=== PATIENT | female | born 1955 | race African-American/Black ===

== ENCOUNTER → 2016-12-13 | Outpatient (CLI) | payer MEDICARE, MEDICAID ==
[~2016-12-13] MED LIST: AMBIEN 10MG10 MG PO; AMOXICILLIN 50500 MG PO; APRESOLINE50 MG PO; ASPI325T6 PO; ASPIRIN E.C. 8181 MG PO; BP MEDICATION; COREG 25MG25 MG/TAB PO; COZAAR 50MG50 MG/TAB PO; DAILY MULTIPLE1 TAB PO; DESYREL 100MG100 MG PO; DESYREL DIVIDO150 M1 PO; DIOVAN 80MG80 MG PO; DOXYCYCLINE 10100 MG PO; DYAZIDE 25 MG-31 CAP PO; IMDUR 30MG30 MG/TAB PO; IMDUR 60MG60 MG/TAB PO; ISORDIL TITRADO30 MG PO; ISOSORBIDE MON120 MG PO; KLOR-CON M1010 MEQ; KLOR-CON M2020 MEQ PO; LANTUS100 U/ML SQ; LIPITOR 80MG80 MG PO; LOPRESSOR 225 MG/TAB PO; LOPRESSOR 550 MG/TAB PO; LOPRESSOR100 MG PO; LUNESTA3 MG PO; NIASPAN 500MG500 MG PO; NITROSTAT0.3 MG SL; NITROSTAT0.4 MG/TAB SL; NORCO 325 MG-51 TAB PO; NORCOELIX PO; NOVOLOG 100U100 U/M1 SQ; PEPCID 20MG TAB20 MG PO; PERCOCET 325 MG1 TA2 PO; PLAVIX 75MG TAB75 MG PO; POTASSIUM75 MG PO; PULMICORT180 MCG/Ac IH; RANEXA 500MG T500 MG PO; RESTORIL 1515 MG/CAP PO; RESTORIL30 MG; RESTORIL30 MG PO; VENTOLIN0.09 MG IH; ZESTRIL 20MG TA20 MG PO; ZOLOFT 50MG50 MG PO
== END ==
LOC: SUN.DIA 11:50
DX: E11.65 Type 2 diabetes mellitus with hyperglycemia (principal); Z79.4 Long term (current) use of insulin; E66.9 Obesity, unspecified; Z68.41 Body mass index [BMI] 40.0-44.9, adult; Z71.3 Dietary counseling and surveillance; E78.5 Hyperlipidemia, unspecified; I10 Essential (primary) hypertension; G47.33 Obstructive sleep apnea (adult) (pediatric); I73.9 Peripheral vascular disease, unspecified
CPT/HCPCS: G0108

== ENCOUNTER 2017-02-26 00:30 | Inpatient (IN) | payer MEDICARE, MEDICAID ==
[~2017-02-26] VITALS: Ht 152.4 cm; Wt 92.0 kg
[~2017-02-26 00:30] MED LIST changes: -APRESOLINE50 MG PO; -COREG 25MG25 MG/TAB PO; -NITROSTAT0.3 MG SL
[2017-02-26] MEDS ORDERED: NITROSTAT0.3 MG SL (00:44)
[2017-02-26 01:16] LABS: BASO % 0.2 % (0.0-2.0); EOS # 0.1 (0.0-0.7); EOS % 1.6 % (0-4.0); GRAN # 2.3 (1.4-6.5); GRAN % 45.3 % (42.2-75.2); HEMATOCRIT 37.6 % (37.0-47.0); HEMOGLOBIN 12.7 g/dl (12.5-16.0); LYMPH # 2.3 (1.2-3.4); LYMPH % 44.2 % (20.0-51.0); MEAN CELL VOLUME 97 fl (80.0-100.0); MEAN CORPUSCULAR HEMOGLOBIN 33 pg (27.0-31.0); MEAN CORPUSCULAR HGB CONC 34 g/dl (33.0-37.0); MEAN PLATELET VOLUME 10.1 fl (7.4-10.4); MONO # 0.4 (0.1-0.6); MONO % 8.5 % (1.7-9.3); PLATELET COUNT 177 K/mm3 (130-400); RED BLOOD COUNT 3.86 M/mm3 (4.10-5.30); REDCELL DISTRIBUTION WIDTH-CV 14.2 % (11.5-14.5); WHITE BLOOD COUNT 5.2 K/mm3 (4.8-10.8)
[2017-02-26 01:35] LABS: ADJUSTED CALCIUM 9.6 mg/dL (8.4-10.2); ALBUMIN 3.6 gm/dL (3.5-5.0); BILIRUBIN,TOTAL 0.5 mg/dL (0.0-1.0); CALCIUM 9.3 mg/dL (8.4-10.2); CREATININE, serum 0.96 mg/dL (0.52-1.25); POTASSIUM 3.4 mmol/L (3.4-5.0)
[2017-02-26 01:53] LABS: TROPONIN-I 0.037 ng/mL (0.000-0.034)
[2017-02-26 06:00] VITALS: BP 166/77; PULSE 78; TEMP 97.5
[2017-02-26 10:08] VITALS: BP 117/66; PULSE 70
[2017-02-26 11:10] LABS: MAGNESIUM 1.6 mg/dL (1.6-2.3)
[2017-02-26 11:19] LABS: MEAN CELL VOLUME 99 fl (80.0-100.0); MEAN CORPUSCULAR HEMOGLOBIN 33 pg (27.0-31.0); MEAN CORPUSCULAR HGB CONC 34 g/dl (33.0-37.0); MEAN PLATELET VOLUME 10.4 fl (7.4-10.4); PLATELET COUNT 173 K/mm3 (130-400); RED BLOOD COUNT 3.59 M/mm3 (4.10-5.30); REDCELL DISTRIBUTION WIDTH-CV 14.4 % (11.5-14.5); WHITE BLOOD COUNT 5.7 K/mm3 (4.8-10.8)
[2017-02-26 11:32] LABS: HEMATOCRIT 35.6 % (37.0-47.0); INR 1.2 (0.8-3.0); PROTHROMBIN TIME 13.4 SECONDS (9.7-12.8)
[2017-02-26 12:09] LABS: PARTIAL THROMBOPLASTIN TIME 194.8 SECONDS (26.0-37.0)
[2017-02-26 12:51] VITALS: BP 144/69; PULSE 75; TEMP 97.9
[2017-02-26 16:00] VITALS: BP 134/67; PULSE 81; TEMP 97.8
[2017-02-26 16:53] LABS: PARTIAL THROMBOPLASTIN TIME 114.9 SECONDS (26.0-37.0)
[2017-02-26 18:55] LABS: PARTIAL THROMBOPLASTIN TIME 62.6 SECONDS (26.0-37.0)
[2017-02-26 22:08] VITALS: BP 141/67; PULSE 93; TEMP 98.6
[2017-02-27] VITALS (11 sets, daily range): BP systolic 101–196; BP diastolic 47–97; PULSE 33–88; TEMP 97.3–98.3
[2017-02-28 03:53] VITALS: BP 166/79; PULSE 77; TEMP 97.8
[2017-02-28 05:43] LABS: HEMATOCRIT 37.1 % (37.0-47.0); HEMOGLOBIN 12.4 g/dl (12.5-16.0); MEAN CELL VOLUME 98 fl (80.0-100.0); MEAN CORPUSCULAR HEMOGLOBIN 33 pg (27.0-31.0); MEAN CORPUSCULAR HGB CONC 33 g/dl (33.0-37.0); MEAN PLATELET VOLUME 10.4 fl (7.4-10.4); PLATELET COUNT 175 K/mm3 (130-400); RED BLOOD COUNT 3.79 M/mm3 (4.10-5.30); REDCELL DISTRIBUTION WIDTH-CV 14.3 % (11.5-14.5); WHITE BLOOD COUNT 5.5 K/mm3 (4.8-10.8)
[2017-02-28 08:09] VITALS: BP 155/77; PULSE 75; TEMP 97.5
[2017-02-28] MEDS ORDERED: APRESOLINE50 MG PO (11:52)
[2017-02-28] MEDS ORDERED: LIPITOR 80MG80 MG PO (11:52)
[2017-02-28] MEDS ORDERED: COREG 25MG25 MG/TAB PO (11:53)
== END 2017-02-28 12:20 | disposition home or self-care (01) | DRG 282 ==
LOC: COL.ER 00:30 → MEDICAL 02:15
PROVIDERS: Emergency Medicine; Internal Medicine
DX: I21.4 Non-ST elevation (NSTEMI) myocardial infarction (principal); I10 Essential (primary) hypertension; I25.10 Atherosclerotic heart disease of native coronary artery without angina pectoris; E11.9 Type 2 diabetes mellitus without complications; Z95.1 Presence of aortocoronary bypass graft; Z95.5 Presence of coronary angioplasty implant and graft; J45.909 Unspecified asthma, uncomplicated; F17.210 Nicotine dependence, cigarettes, uncomplicated; Z79.4 Long term (current) use of insulin; E66.01 Morbid (severe) obesity due to excess calories; Z68.39 Body mass index [BMI] 39.0-39.9, adult
CPT/HCPCS: 99223-AI; 99232-AI; 99238; A9502; J1170; J1644; J1650; J1815; J2270; J2785; J7030